=== PATIENT | female | born 1955 | race Caucasian/White ===

== ENCOUNTER → 2021-01-30 12:49 | Outpatient (BNVA) | payer MEDICARE, MEDICAID, SELFPAY | PROVIDERS: PCP Hospitalist; Referring Provider Hospitalist; Visit Provider Internal Medicine Cardiovascular Disease | DX: I25.10 Atherosclerotic heart disease of native coronary artery without angina pectoris (principal); I10 Essential (primary) hypertension; J96.11 Chronic respiratory failure with hypoxia | CPT/HCPCS: 93005; 99212 ==

== ENCOUNTER → 2022-02-03 12:59 | Outpatient (BNVA) | payer MEDICARE, MEDICAID, SELFPAY | PROVIDERS: PCP Hospitalist; Visit Provider Internal Medicine Cardiovascular Disease | DX: I25.10 Atherosclerotic heart disease of native coronary artery without angina pectoris (principal); I10 Essential (primary) hypertension | CPT/HCPCS: 93005; 99212 ==

== ENCOUNTER → 2022-03-10 09:56 | Outpatient (REF) | payer MEDICARE, MEDICAID, SELFPAY ==
--- NOTE | ~2022-03-10 | NM_ITS ---
Lexiscan Myocardial perfusion study Indication: Coronary disease, assess for ischemia Technique: The patient was brought in for a Lexiscan perfusion study on 03/10/2022 and was injected 0.4 mg of Lexiscan intravenously. Within a minute of this injection 40 mCi of sestamibi was given intravenously. Images were obtained using the SPECT gamma camera interlaced with the gating device. Images were obtained in supine position. Resting perfusion study was performed on 03/11/2022. Patient was administered 40 mCi of sestamibi intravenously at rest. Images were then obtained in supine position. Total DLP 168mGy-cm. Images were processed with the software and compared side to side in short axis, horizontal long axis and vertical long axis views. Findings: Raw acquisition reviewed. The stress perfusion study showed diminished tracer uptake in the distal part of inferior wall, adjacent inferolateral wall. There is also diminished tracer uptake in mid to distal anterior wall and adjacent apex. There is improvement with CT attenuation correction but does not normalizes completely. The gated study shows normal LV systolic function with calculated LVEF of 66%. LV cavity is normal in size. The gated study shows normal wall thickening and contraction of segments. Resting study shows diminished tracer uptake in the distal part of inferior wall and adjacent inferolateral wall. There is improvement with CT attenuation correction. Gating at rest reveals normal wall motion with ejection fraction at 71%. The findings are consistent with mild reversible defect in the distal part of anterior wall. Fixed defect and distal part of inferior/inferolateral wall. NM/NM papo perf SPECT rest & str Impression: 1. Myocardial perfusion imaging study shows mild intensity ischemia in the mid to distal anterior wall. Fixed defect in the distal inferior/inferolateral wall suspected to be from diaphragmatic attenuation artifact. 2. Gated LVEF is 66% during stress and 71% during rest. 3. Transient ischemic dilatation not present. EKG component of the test reported separately.
--- NOTE | 2022-03-10 09:59 | CA_ITS ---
Acquisition Time: 2022-03-10 10:21:04 Total Exercise Time: 00:02:00 Test Indications: ASHD Medications: see med sheet Protocol: LEXISCAN Max HR: 090 BPM 59% of Pred: 152 BPM Max BP: 130/076 mmHG Max Work Load: 1.0 METS Pharmacological stress test with Lexiscan injection, while sitting and kicking her legs, without anginal symptoms, with isolated PVC, with normotensive response to injection, with nondiagnostic EKG for ischemia. Nuclear images pending. Test reviewed with Dr Chavez. Referred By: Pavan Arshad Overread By: KAITLYN FLOYD
== END ==
LOC: HO.CARD 09:56
PROVIDERS: PCP Physician Assistant; Visit Provider Internal Medicine Cardiovascular Disease
DX: I25.10 Atherosclerotic heart disease of native coronary artery without angina pectoris (principal)
CPT/HCPCS: 78452; 93017; A9500; J0280; J2785

== ENCOUNTER → 2023-02-02 12:23 | Outpatient (BNVA) | payer MEDICARE, MEDICAID, SELFPAY | PROVIDERS: PCP Physician Assistant; Referring Provider Physician Assistant; Visit Provider Internal Medicine Cardiovascular Disease | DX: I25.10 Atherosclerotic heart disease of native coronary artery without angina pectoris (principal); I10 Essential (primary) hypertension; Z79.899 Other long term (current) drug therapy | CPT/HCPCS: 93005; 99212 ==

== ENCOUNTER 2024-01-27 12:52 | Outpatient (AMB) | payer MEDICARE, MEDICAID, SELFPAY ==
--- NOTE | 2024-01-27 13:03 | MHC.OFFVIS ---
Vital Signs 01/27/24 13:04 Height 5 ft 3 in Weight 238 lb 1.588 oz BMI 42.2 BP 124/78 Blood Pressure Location Lt brachial Position Sitting Pulse 78 Intake Visit Reasons: 1 yr f/up Intake Note: 1 year follow-up with ekg feeling ok Environmental Services Manager Required: No Allergies Sulfa (Sulfonamide Antibiotics) Allergy (Unknown, Verified 02/22/20 00:00) sulfamethoxazole [From BACTRIM] Allergy (Unknown, Unverified 05/23/20 14:39) SLEEP DISTURBANCES trimethoprim [From BACTRIM] Allergy (Unknown, Unverified 05/23/20 14:39) SLEEP DISTURBANCES Medication List - Last Reconciled 01/27/24 by Pavan Arshad MD adalimumab 40 mg subcut QWEEK amlodipine 5 mg PO DAILY aspirin (Adult Low Dose Aspirin) 81 mg PO DAILY citalopram 20 mg PO BEDTIME docusate sodium 100 mg PO DAILY PRN ezetimibe 10 mg PO DAILY igkcalvuebm-gcchlvarv-mfdpbbbn 100-62.5-25 mcg 1 ea inhalation DAILY folic acid 1 mg PO DAILY hydrochlorothiazide 12.5 mg PO DAILY lorazepam 1 mg PO TID methotrexate sodium 20 mg PO QWEEK metoprolol succinate ER 200 mg PO DAILY quetiapine 50 mg PO BEDTIME PRN rosuvastatin 40 mg PO DAILY trazodone 200 mg PO BEDTIME HPI Comments Details: Lilly comes for follow-up. She has no new cardiac symptoms. No symptoms of angina. Continues to be limited because of symptoms of shortness of breath. Uses oxygen with exercise as well as uses BiPAP at nighttime. Takes all her medications. I do not see any recent lipid panel on her. Denies any heart failure symptoms of orthopnea, PND, leg edema. Denies prolonged palpitations irregular heartbeat. [facility] Medical History Chronic respiratory failure with hypoxia Obesity Obstructive sleep apnea Hyperlipidemia HTN (hypertension) CAD (coronary artery disease) Surgical History S/P CABG x 3 Stented coronary artery Family History Father CVD (cardiovascular disease) Mother CVD (cardiovascular disease) Social History Patient Tobacco Use Status: Former Tobacco user Quit Date: 20 years ago Review of Systems Const Denies chills, Denies fatigue, Denies fever(s), Denies frequent falls, Denies weakness, Denies weight gain and Denies weight loss ENT Denies dizziness Card Denies chest pain, Denies leg edema, Denies lightheadedness, Denies palpitations, Denies dyspnea, Denies dyspnea on exertion, Denies orthopnea and Denies other (loss of consciousness) Resp Denies cough, Denies dyspnea and Denies dyspnea on exertion GI Denies hematochezia and Denies change in stool character Musc Denies abnormal gait, Denies muscle weakness, Denies numbness, Denies radiating pain into limb and Denies tingling Neuro Denies abnormal gait, Denies dizziness, Denies frequent falls, Denies numbness, Denies tingling and Denies weakness Endo Denies fatigue and Denies palpitations Physical Exam Vital Signs: Last Vital Signs Pulse 78 01/27/24 13:04 BP 124/78 01/27/24 13:04 BMI result Body Mass Index 42.2 Const General: cooperative, comfortable, no acute distress, alert, awake and well groomed Nutritional Appearance: obese centrally obese Orientation/consciousness: patient oriented x3 Limitations: no limitations Neck Neck: Yes trachea midline, Yes supple and Yes no JVD Resp Effort & Inspection: normal respiratory effort Auscultation: clear to auscultation bilaterally and diminished lung sounds Cardio Jugular venous distension: no JVD Rate: regular rate Rhythm: regular rhythm Heart sounds: S1 normal heart sound present and S2 normal heart sound present GI Inspection: Yes obesity Auscultation: normal bowel sounds Skin General skin exam: no rashes or lesions noted Neuro General: patient oriented x3 and no focal motor deficits Extrem General: Yes no clubbing, cyanosis or edema Psych Appearance: grossly normal Office Procedures EKG Details: EKG shows normal sinus rhythm with normal EKG [id number], Complete Assessment & Plan Assessment & Plan (1) CAD (coronary artery disease): Code(s): I25.10 - Atherosclerotic heart disease of [place] coronary artery without angina pectoris Category: Medical Plan: CAD with remote coronary artery bypass grafting with current continues to have no symptoms. Myocardial perfusion imaging 2 years ago was within normal limits. No further workup is indicated at this point time. Continue aggressive medical therapy is required. Low-dose aspirin therapy required for life. Continue high-intensity statin therapy as well as ezetimibe therapy. Target goal LDL closer to 60 mg/dL. Advised lipid panel near future. Continue participate in weight loss program. (2) HTN (hypertension): Code(s): I10 - Essential (primary) hypertension Category: Medical Plan: Hypertension which is currently well optimized advised to monitor blood pressure at home maintain a log. Goal blood pressure less than 130/84. Continue current therapy with metoprolol, hydrochlorothiazide and amlodipine which has worked well for her. Continue BiPAP therapy. Will follow up in the clinic in 1 year's time, sooner p.r.n.. Orders: Orders Lipid Panel Today I25.10 - Atherosclerotic heart disease of [place] coronary artery without angina pectoris Coding Level of Care Code Est Pt Level 4 (74592) Diagnoses CAD (coronary artery disease) I25.10 HTN (hypertension) I10 CPT Codes EKG - CPT: 05058-[id number], Complete ([id number])
[2024-01-27 13:04] VITALS: BP 124/78; PULSE 78; BMI 42.2
== END 2024-01-27 13:28 | disposition home or self-care (01) ==
PROVIDERS: Visit Provider Internal Medicine Cardiovascular Disease
DX: I25.10 Atherosclerotic heart disease of native coronary artery without angina pectoris (principal); I10 Essential (primary) hypertension
CPT/HCPCS: 93010; 99214

== ENCOUNTER → 2024-01-27 12:52 | Outpatient (BNVA) | payer MEDICARE, MEDICAID, SELFPAY | PROVIDERS: Visit Provider Internal Medicine Cardiovascular Disease | DX: I25.10 Atherosclerotic heart disease of native coronary artery without angina pectoris (principal); I10 Essential (primary) hypertension | CPT/HCPCS: 93005; 99212 ==

== ENCOUNTER 2025-01-25 13:24 | Outpatient (AMB) | payer MEDICARE, MEDICAID, SELFPAY ==
--- NOTE | 2025-01-25 13:25 | A.OFFVIS_ITS ---
Vital Signs 01/25/25 13:26 Height 5 ft 3 in Weight 255 lb 11.779 oz BMI 45.3 BP 120/80 Blood Pressure Location Lt brachial Position Sitting Pulse 72 Intake Visit Reasons: 1 yr follow up Intake Note: 1 year follow-up with ekg feeling good Non Destructive Testing Scientist Required: No Allergies Sulfa (Sulfonamide Antibiotics) Allergy (Unknown, Verified 02/22/20 00:00) sulfamethoxazole [From BACTRIM] Allergy (Unknown, Unverified 05/23/20 14:39) SLEEP DISTURBANCES trimethoprim [From BACTRIM] Allergy (Unknown, Unverified 05/23/20 14:39) SLEEP DISTURBANCES Medication List - Last Reconciled 01/25/25 by Pavan Arshad MD adalimumab 40 mg subcut QWEEK amlodipine 5 mg PO DAILY aspirin (Adult Low Dose Aspirin) 81 mg PO DAILY citalopram 20 mg PO BEDTIME docusate sodium 100 mg PO DAILY PRN ezetimibe 10 mg PO DAILY avvzxxnzsat-bwlkvskjf-nxamrche 100-62.5-25 mcg 1 ea inhalation DAILY folic acid 1 mg PO DAILY hydrochlorothiazide 12.5 mg PO DAILY lorazepam 1 mg PO TID methotrexate sodium 20 mg PO QWEEK metoprolol succinate ER 200 mg PO DAILY quetiapine 50 mg PO BEDTIME PRN rosuvastatin 40 mg PO DAILY trazodone 200 mg PO BEDTIME HPI Comments Details: Lilly comes for follow-up for annual follow-up. She continues to have exertional shortness of breath. Currently on oxygen therapy for COPD and chronic respiratory failure but currently not using it. No cardiac symptoms. No exertional chest pain or shortness of breath. She says psoriatic arthritis under good control. Recently noted to have mildly elevated CRP. She has not had any recent lipid panel. She takes all her medications. Blood pressures been well optimized. [facility] Medical History Chronic respiratory failure with hypoxia Obesity Obstructive sleep apnea Hyperlipidemia HTN (hypertension) CAD (coronary artery disease) Surgical History S/P CABG x 3 Stented coronary artery Family History Father CVD (cardiovascular disease) Mother CVD (cardiovascular disease) Social History Patient Tobacco Use Status: Former Tobacco user Review of Systems Const Denies chills, Denies fatigue, Denies fever(s), Denies frequent falls, Denies weakness, Denies weight gain and Denies weight loss ENT Denies dizziness Card Denies chest pain, Denies leg edema, Denies lightheadedness, Denies palpitations, Denies dyspnea, Denies dyspnea on exertion, Denies orthopnea and Denies other (loss of consciousness) Resp Denies cough, Denies dyspnea and Denies dyspnea on exertion GI Denies hematochezia and Denies change in stool character Musc Denies abnormal gait, Denies muscle weakness, Denies numbness, Denies radiating pain into limb and Denies tingling Neuro Denies abnormal gait, Denies dizziness, Denies frequent falls, Denies numbness, Denies tingling and Denies weakness Endo Denies fatigue and Denies palpitations Physical Exam Vital Signs: Last Vital Signs Pulse 72 01/25/25 13:26 BP 120/80 01/25/25 13:26 BMI result Body Mass Index 45.3 Const General: cooperative, comfortable, no acute distress, alert, awake and well groomed Nutritional Appearance: obese centrally obese Orientation/consciousness: patient oriented x3 Limitations: no limitations Neck Neck: Yes trachea midline, Yes supple and Yes no JVD Resp Effort & Inspection: normal respiratory effort Auscultation: clear to auscultation bilaterally and diminished lung sounds Cardio Jugular venous distension: no JVD Rate: regular rate Rhythm: regular rhythm Heart sounds: S1 normal heart sound present and S2 normal heart sound present GI Inspection: Yes obesity Auscultation: normal bowel sounds Skin General skin exam: no rashes or lesions noted Neuro General: patient oriented x3 and no focal motor deficits Extrem General: Yes no clubbing, cyanosis or edema Psych Appearance: grossly normal Office Procedures EKG Details: EKG shows normal sinus rhythm with normal EKG [id number], Complete Assessment & Plan Assessment & Plan (1) CAD (coronary artery disease): Code(s): I25.10 - Atherosclerotic heart disease of [place] coronary artery without angina pectoris Category: Medical Plan: CAD status post surgical revascularization currently not having any symptoms suggestive of angina. Continue aggressive medical therapy. Low-dose aspirin therapy for life was discussed. Continue high-intensity statin therapy along with ezetimibe therapy. Advised lipid panel in near future to assess for response. Target goal LDL less than 55 mg/dL. She would benefit significantly from weight loss program. Have taken the liberty to prescribe GLP 1 antagonist (2) HTN (hypertension): Code(s): I10 - Essential (primary) hypertension Category: Medical Plan: Hypertension which is currently well optimized advised to monitor blood pressure at home maintain a log. Goal blood pressure less than 130/84. Low-salt diet was discussed. Aggressive weight loss program was discussed. She understands management very well. Continue current therapy. Will follow up in the clinic in 1 year's time, sooner p.r.n.. Thank you for allowing me to partake in her care Orders: Orders 2 Lipid Panel Today I25.10 - Atherosclerotic heart disease of [place] coronary artery without angina pectoris Medications: New semaglutide (weight loss) (Wegovy) administer weeks 1 through 4 of therapy 0.25 mg (0.5 mL) subcut QWEEK 2 mL 3RF I25.10 - Atherosclerotic heart disease of [place] coronary artery without angina pectoris Coding Level of Care Code Est Pt Level 4 (36598) Complex EM visit Add On G2211 Diagnoses CAD (coronary artery disease) I25.10 HTN (hypertension) I10 CPT Codes EKG - CPT: 21899-[id number], Complete ([id number])
[2025-01-25 13:26] VITALS: BP 120/80; PULSE 72; BMI 45.3
== END 2025-01-25 13:54 | disposition home or self-care (01) ==
LOC: HO.HCS 13:24
PROVIDERS: PCP Physician Assistant; Visit Provider Internal Medicine Cardiovascular Disease
DX: I25.10 Atherosclerotic heart disease of native coronary artery without angina pectoris (principal); I10 Essential (primary) hypertension
CPT/HCPCS: 93010; 99214; G2211

== ENCOUNTER → 2025-01-25 13:24 | Outpatient (BNVA) | payer MEDICARE, MEDICAID, SELFPAY | PROVIDERS: PCP Physician Assistant; Visit Provider Internal Medicine Cardiovascular Disease | DX: I25.10 Atherosclerotic heart disease of native coronary artery without angina pectoris (principal); I10 Essential (primary) hypertension | CPT/HCPCS: 93005; 99212 ==

== ENCOUNTER 2025-01-26 13:42 | Outpatient (REF) | payer MEDICARE, MEDICAID, SELFPAY ==
--- NOTE | ~2025-01-26 | MR_ITS ---
EXAMINATION: MR ABDOMEN WITHOUT THEN WITH IV CONTRAST HISTORY: INCIDENTAL SPLENIC MASS COMPARISON: Correlation is made with an outside chest CT from [facility] dated 01/03/2025. TECHNIQUE: Axial in and out of phase T1-weighted gradient echo, axial diffusion weighted, and axial and coronal HASTE T2 with fat saturation images were obtained through the abdomen. Subsequently, fat suppressed axial and coronal T1-weighted images were obtained after the intravenous administration of 10 mL Gadavist. FINDINGS: The examination is somewhat limited by patient motion. Liver: There is no loss of signal intensity in the liver on opposed phase imaging to suggest steatosis. There is no enhancing liver mass. The hepatic and portal veins are patent. There is no intra- or extrahepatic biliary dilatation. Gallbladder: No gallstones are identified. Spleen: There is a well-circumscribed T2 hyperintense mass at the lower pole of the spleen measuring 7.6 x 6.9 x 6.7 cm. There is central T2 height oh intensity. The mass demonstrates heterogeneous enhancement, greatest at the periphery. Pancreas: The pancreas is unremarkable. The pancreatic duct is normal in caliber. Adrenals: The adrenal glands are unremarkable. Kidneys: There is a 1.3 cm cyst at the lower pole of the right kidney. The kidneys are otherwise unremarkable. There is no hydronephrosis. Lymph nodes: There is no retroperitoneal lymphadenopathy in the upper abdomen. Fluid: There is no ascites in the upper abdomen. Visualized bowel: The visualized bowels loops are unremarkable in appearance. Visualized bones: The visualized bones demonstrate normal marrow signal intensity. MR/MR abdomen wo/w con IMPRESSION: 7.6 x 6.9 x 6.7 cm indeterminate solid mass at the lower pole of the spleen. Imaging characteristics are not classic for a hemorrhagic cyst or hemangioma. Differential diagnostic considerations include hamartoma, littoral cell angioma, and less likely lymphangioma. Follow-up imaging is recommended in 6 months to assess for stability. Electronically signed by: Guy Baxter MD 01/26/2025 03:17 PM EDT
[2025-01-26] MEDS: gadobutroL 10 ML VIAL IVPUSH (14:59)
== END 2025-01-26 13:43 | disposition home or self-care (01) ==
LOC: HO.MRI 13:42
PROVIDERS: PCP Physician Assistant; Visit Provider Physician Assistant
DX: R16.1 Splenomegaly, not elsewhere classified (principal)
CPT/HCPCS: 74183; A9585

== ENCOUNTER → 2025-01-26 14:19 | Outpatient (BNV) | payer MEDICARE, MEDICAID, SELFPAY | PROVIDERS: PCP Physician Assistant; Visit Provider Radiology Diagnostic Radiology | DX: R19.02 Left upper quadrant abdominal swelling, mass and lump (principal) | CPT/HCPCS: 74183 ==

== ENCOUNTER 2025-01-30 11:58 | Outpatient (REF) | payer MEDICARE, MEDICAID, SELFPAY ==
[2025-01-30 13:58] LABS: Cholesterol 133 mg/dL (<200); HDL Cholesterol 43 mg/dL (>40); LDL Cholesterol Calculated 62 mg/dL (<100); Triglycerides 144 mg/dL (<150)
== END 2025-01-30 11:59 | disposition home or self-care (01) ==
LOC: HO.HMGCLDS 11:58
PROVIDERS: PCP Physician Assistant; Visit Provider Internal Medicine Cardiovascular Disease
DX: I25.10 Atherosclerotic heart disease of native coronary artery without angina pectoris (principal)
CPT/HCPCS: 36415; 80061